=== PATIENT | female | born 1945 | race Caucasian/White ===

== ENCOUNTER 2020-10-05 13:42 | Inpatient (IN) | payer MEDICARE, MEDICAID ==
[~2020-10-05] VITALS: Ht 157.5 cm; Wt 63.6 kg
[~2020-10-05 13:42] MED LIST: 00186-0370-20 IH; 00186-0372-20 IH; ASPIRIN 81M81 MG/TA2 PO; COZAAR100 MG PO; HCTZ 25MG TAB25 MG PO; LEVAQUIN 750MG750 M1 PO; PREDNISONE20 MG PO; PRINZIDE 12.5 M1 TA1 PO; PROAIR HFA0.09 MG/AC IH; RT SPIRIVA18 MCG IH; SINGULAIR 110 MG/TAB PO; ULTRAM 50MG TAB50 MG PO; ZITHROMAX Z PA250 MG PO; ZOFRAN8 MG PO
[2020-10-05 14:13] LABS: HEMATOCRIT 38.4 % (37.0-47.0); HEMOGLOBIN 11.9 g/dl (12.5-16.0); MEAN CELL VOLUME 98 fl (80.0-100.0); MEAN CORPUSCULAR HEMOGLOBIN 30 pg (27.0-31.0); MEAN CORPUSCULAR HGB CONC 31 g/dl (33.0-37.0); MEAN PLATELET VOLUME 9.5 fl (7.4-10.4); PLATELET COUNT 474 K/mm3 (130-400); RED BLOOD COUNT 3.91 M/mm3 (4.10-5.30); REDCELL DISTRIBUTION WIDTH-CV 13.5 % (11.5-14.5)
[2020-10-05 14:33] LABS: ALBUMIN 3.8 gm/dL (3.5-5.0); BILIRUBIN,TOTAL 0.3 mg/dL (0.0-1.0); CALCIUM 9.7 mg/dL (8.4-10.2); CREATININE, serum 0.47 (0.52-1.25); POTASSIUM 4.4 mmol/L (3.4-5.0); TOTAL PROTEIN 7.1 gm/dL (6.4-8.2)
[2020-10-05 14:52] LABS: HYPOCHROMIA 3+; LYMPHOCYTE 8 % (20.0-51.0); MYELOCYTE 1 % (0-0); NEUTROPHILS 83 % (42.0-75.2); PLATELET ESTIMATE INCREASED (NORMAL)
[2020-10-05 14:53] LABS: POIKILOCYTOSIS 1+; STOMATOCYTE 1+
[2020-10-05 19:24] VITALS: BP 136/60; PULSE 64; TEMP 97.9
--- NOTE | 2020-10-05 22:49 | NUR ---
Shift assessment completed. Patient alert and oriented. Patient denies any pain or discomfort. Patient currently on oxygen 3L via NC. Patient reports SOB with actitivities. VS stable. Patient reports feeling anxious and requesting anxiety medication. PRN Ativan given for anxiety. All scheduled meds given per MAY. Call light within reach. Will continue to monitor.
[2020-10-05 23:47] VITALS: BP 129/62; PULSE 71; TEMP 98.2
[2020-10-06 04:06] VITALS: BP 130/64; PULSE 53; TEMP 97.8
--- NOTE | 2020-10-06 05:29 | NUR ---
D-Dimer level was 1016 around 2100 last night. Called RAJIV Taylor around 21:30 pm and made her aware.
[2020-10-06 07:10] LABS: HEMOGLOBIN 10.8 g/dl (12.5-16.0); MEAN CELL VOLUME 99 fl (80.0-100.0); MEAN CORPUSCULAR HEMOGLOBIN 30 pg (27.0-31.0); MEAN CORPUSCULAR HGB CONC 30 g/dl (33.0-37.0); MEAN PLATELET VOLUME 9.8 fl (7.4-10.4); PLATELET COUNT 470 K/mm3 (130-400); REDCELL DISTRIBUTION WIDTH-CV 13.2 % (11.5-14.5)
[2020-10-06 07:11] LABS: HEMATOCRIT 35.5 % (37.0-47.0)
[2020-10-06 07:20] LABS: CALCIUM 9.4 mg/dL (8.4-10.2); CREATININE, serum 0.41 (0.52-1.25)
[2020-10-06 08:12] LABS: BAND 14 % (0-10); LYMPHOCYTE 5 % (20.0-51.0); METAMYELOCYTE 1 % (0-0); NEUTROPHILS 79 % (42.0-75.2); PLATELET ESTIMATE NORMAL (NORMAL)
[2020-10-06 08:27] VITALS: BP 122/69; PULSE 119; TEMP 98.4
--- NOTE | 2020-10-06 09:58 | NUR ---
SW's met with the patient to discuss discharge plan. The patient lives in [place] with her daughter, Raul Mclaughlin (ph#[phone]), and five grandchildren. She reports independence with ADLs and does not have any assistive devices. She has home oxygen from [employer] and states that she is normally on 2-3 liters of oxygen. The patient's PCP is Dr. Ludy Amor and she receives her medications from [facility]. She reports no difficulties obtaining her meds. The patient does not have a DPOA-HC, but she states that she is having discussions and considering who she would want to designate. She was interested in obtaining a DPOA-HC form while here. SW provided. The patient states that she is and that she has four children: Juan Carter ([place]), [place]iah ([place]), and Ten ([place]). The patient plans to return home with her family upon discharge. The patient did express some hesitation with getting into the shower. SW discussed home health PT/OT/SN and how they could then offer a bath aide. The patient declined home health. SW to ask for PT/OT to be ordered. *Discharge plan: home with family, awaiting therapy's recs*
--- NOTE | 2020-10-06 10:48 | NUR ---
Initial visit; Patient thanked Glaciologist for looking in on her and offering God's blessings and to keep her in Glaciologist's prayers.
[2020-10-06 12:03] VITALS: BP 121/59; PULSE 126; TEMP 98.4
[2020-10-06 16:03] VITALS: BP 119/91; PULSE 114; TEMP 98.7
--- NOTE | 2020-10-06 19:32 | NUR ---
Patient is resting in bed with family member watching TV. HR continues high. Reports no nausea or vomiting. Some cough with little production of sputum. Patient is at 3L oxygen with nasal canula. No further needs at this time.
[2020-10-06 20:15] VITALS: BP 134/77; PULSE 117; TEMP 98.5
[2020-10-06 23:44] VITALS: BP 118/66; PULSE 114; TEMP 98.4
[2020-10-07 04:31] VITALS: BP 108/51; PULSE 92; TEMP 97.6
--- NOTE | 2020-10-07 05:13 | NUR ---
Patient is resting in bed. She has had very short periods of sleeping. She complained of anxiety after midnight and asked for PRN ativan. It was provided. Right now she is trying to sleep. She continues resting on her right side. Reposition has been encouraged. Patient is able to move independently and uses comode. Patient continues with 3L of O2 with nasal canula. Sometimes has cough. Sometimes she has cough with sputum. No further needs at this time. Call light within reach.
[2020-10-07 07:45] VITALS: BP 119/62; PULSE 107; TEMP 98.2
[2020-10-07 12:14] VITALS: BP 114/74; PULSE 132; TEMP 98.9
[2020-10-07 15:47] VITALS: BP 102/66; PULSE 119; TEMP 98.8
--- NOTE | 2020-10-07 16:14 | NUR ---
PT notified SW that the patient would benefit from HH. SW's met with the patient to discuss their recommendation and home health's benefits. The patient reports that she would like to see what is going on first, before deciding on home health or not. SW to continue to follow.
--- NOTE | 2020-10-07 18:01 | NUR ---
THE PATIENT HAS DENIED ANY NEEDS TODAY. SHE HAS BEEN LAYING IN BED ON HER RIGHT SIDE 1/2 PRONE DUE TO DIFFCULTY WITH HER BREATHING. SHE IS SCHEDULED FOR A LUNG BIOPSY IN THE MORNING WITH DR. YANES, THE PATIENT AND FAMILY UNDERSTAND THE PROCEDURE. NO OTHER CONCERNS.
[2020-10-07 20:00] VITALS: BP 127/90; PULSE 116; TEMP 98.7
--- NOTE | 2020-10-07 21:13 | NUR ---
Patient is resting in bed, watching TV. Alert and oriented x 4. VSS, no nausea, vomitig or pain. Patient states she feels dizzy when going to the restroom, but ok once she comeback. Patient continues in 3 L O2 nasal canula. No further needs at this time. NPO after midnight. Call light within reach.
[2020-10-08] VITALS (19 sets, daily range): BP systolic 105–151; BP diastolic 61–86; PULSE 94–133; TEMP 97.6–99
--- NOTE | 2020-10-08 06:38 | NUR ---
Patient has been doin ok along night, continues with cough and O2 in 3L. NPO for procedure. She has persistent cough. No further needs at this time. Shift report will be given to day nurse.
--- NOTE | 2020-10-08 10:21 | NUR ---
PT PLEASANT, AOX4, DENIES PAIN, EXP WHEEZE HEARD UPON AUSCULTATION, PT ANXIOUS FOR BIOPSY, CALLED CT ABOUT TIME, HAD TO PLACE ORDER FOR BIOPSY, CONSENT OBTAINED, DR. CROSS NOTIFIED ABOUT DELAY. PT HAS GRANDSON IN THE ROOM, NO OTHER NEEDS AT THIS TIME
--- NOTE | 2020-10-08 11:50 | NUR ---
pt taken down for lung biopsy
--- NOTE | 2020-10-08 12:00 | NUR ---
PT BROUGHT DODWN BY STAFF IN BED. TRANSFERED TO BED PER SELF. MONITORING EQUIPMENT PLACED.
--- NOTE | 2020-10-08 13:03 | NUR ---
PT RETURNED, PT TURNED TO 4L, VITALS OBTAINED, ATTACHED FOR POST OP, PT BREATHING DOES NOT APPEAR MORE LABORED THAN THIS MORNING. PT EDUCATED TO STAY ON BACK FOR 1 HOUR ALONG WITH MAINTAINING NPO STATUS UNTIL OTHERWISE ORDERED BY PHSYICIAN. PT REPORTS SHE WILL TRY TO REST.
--- NOTE | 2020-10-08 13:24 | NUR ---
1255 PT BROUGHT UP IN BED. 02 @ 4L/NC PER DR YANES. PT TO REMAIN ON HER BACK UNTIL NEXT CXR IN 1 HOUR. PT HAD 0.5 MB VERSED AND 25 MCG FENTANYL AT 1219. FOR ANXIETY. VSS AND MONITOR SET FOR Q 15 MINUTES. SON IN ROOM.
--- NOTE | 2020-10-08 14:37 | NUR ---
PT HAVING BLOODY SPUTUM, VITALS STABLE, PHSYICIAN NOTIFIED, NO NEW ORDERS
--- NOTE | 2020-10-08 18:12 | NUR ---
PT COUGHING WITH SCANT DARK RED SPUTUM, EATING WELL, DRINKING WELL, EAGER FOR SPENDING ONE MORE NIGHT IN HOSPITAL AFTER LUNG BIOPSY, TAKING MEDS WELL, NEW IV STARTED IN LF, LFA INT DISCONTINUED, NO OTHER NEEDS
[2020-10-09 00:05] VITALS: BP 115/72; PULSE 100; TEMP 98.4
[2020-10-09 04:00] VITALS: BP 96/58; PULSE 100; TEMP 36.8
--- NOTE | 2020-10-09 06:39 | NUR ---
PT CONTINUES TO COUGH SCANT THIN BLOOD, LIGHT RED, PT DENIES PAIN,N,V,D. 02 3L NC. PT EXPRESSES NO ADDITIONAL NEEDS AT THIS TIME. CALL LIGHT WITHIN REACH.
--- NOTE | 2020-10-09 07:45 | NUR ---
PT PLEASANT, AOX4, DENIES WORSENING SOB, REPORTS NOT SPITTING UP BLOOD SINCE MIDDLE OF THE NIGHT. PT ASSESSMENT PERFORMED, PT MEDICATIONS GIVEN, BREAKFAST BROUGHT IN FOR PT, VITALS TAKEN AND REVIEWED, NO OTHER NEEDS AT THIS TIME
[2020-10-09 07:48] VITALS: BP 125/79; PULSE 106
[2020-10-09] MEDS ORDERED: INCRUSE EL62.5 MCG/A IH (12:22)
[2020-10-09] MEDS ORDERED: MEDROL 4MG DOSPA4 MG PO (12:26)
[2020-10-09] MEDS ORDERED: ZITHROMAX 250M250 MG PO (12:31)
[2020-10-09 13:00] VITALS: BP 121/73; PULSE 111; TEMP 98
--- NOTE | 2020-10-09 13:33 | NUR ---
DISCHARGE EDUCATION PROVIDED TO PT AND PT GRANDSON. NO QUESTIONS AT THIS TIME. IV TO LH REMOVED.
--- NOTE | 2020-10-09 13:49 | NUR ---
The patient is to discharge back home with her family today, 10/09. SW met with the patient and presented and read the IM form outloud to her. The patient verbalized understanding and gave SW approval to sign the form on her behalf. SW provided her with a copy. No additional needs at this time.
--- NOTE | 2020-10-09 14:00 | NUR ---
PT ESCORTED OUT VIA WHEELCHAIR WITH PT BELONGINGS
--- NOTE | 2020-10-09 14:22 | NUR ---
PT ESCORTED OUT WITH ALTERNATE OXYGEN TANK WITH PT BELONGINGS VIA WHEELCHAIR
== END 2020-10-09 14:02 | disposition home or self-care (01) | DRG 872 ==
LOC: COL.ER 13:42 → MEDICAL 15:22
PROVIDERS: Family Medicine; ADMIT Student in an Organized Health Care Education/Training Program
PROC: 0BBG3ZX Excision of Left Upper Lung Lobe, Percutaneous Approach, Diagnostic (ICD-10-PCS; principal; 2020-10-08)
DX: A41.9 Sepsis, unspecified organism (principal); J44.1 Chronic obstructive pulmonary disease with (acute) exacerbation; J96.11 Chronic respiratory failure with hypoxia; I10 Essential (primary) hypertension; D64.9 Anemia, unspecified; Z66 Do not resuscitate; G72.9 Myopathy, unspecified; R00.0 Tachycardia, unspecified; F17.200 Nicotine dependence, unspecified, uncomplicated; B96.5 Pseudomonas (aeruginosa) (mallei) (pseudomallei) as the cause of diseases classified elsewhere; Z20.822 Contact with and (suspected) exposure to COVID-19; Z88.0 Allergy status to penicillin
CPT/HCPCS: 99222-AI; 99232-AI; 99233-AI; 99238; J1650; J1956; J2185; J2250; J2920; J2930; J3010; J7512; Q9967